=== PATIENT | male | born 1985 | race African-American/Black ===

== ENCOUNTER 2018-02-23 23:55 | Emergency (ER) | payer OTHER ==
[2018-02-24] MEDS ORDERED: LIDOCAINE 1%-EPI 1:100,000 30 ML VIAL SQ STA
[2018-02-24] MEDS ORDERED: BENZOCAINE SPRAY 1 CAN MUCOUS MEM STA (00:04)
[2018-02-24] MEDS ORDERED: DEXAMETHASONE SOD PHOSPHATE 10 MG/ML 1 ML VIAL IV STA (00:04)
[2018-02-24 00:06] VITALS: RESP 19
[2018-02-24] MEDS ORDERED: LORazepam 2 MG/ML INJ IV STA (00:24)
--- NOTE | 2018-02-24 01:29 | ED ---
General Adult HPI - General Chief complaint: ENT Stated complaint: Abscess Source: patient, EMS Mode of arrival: EMS Limitations: no limitations - History of Present Illness Initial comments: Dictation was produced using [email or web address] dictation software. please excuse any grammatical, word or spelling errors. Chief Complaint: 32yo Rican malesignificant past medical history presents via EMS as a transfer from [facility] for peritonsillar abscess. History of Present Illness: An is a 32-year-old -[place] male transferred [facility] peritonsillar abscess on the right. Evaluation was initially evaluated at [facility] where evaluation was performed. He did receive a CT angiogram of the neck showing 2 cm right peritonsillar abscess. Patient initially presented there with several days of worsening sore throat. Patient did have some symptoms as trismus as well. Patient received 900 mg of IV clindamycin prior to transfer. He did receive IV analgesics as well. The ROS documented in this emergency department record has been reviewed and confirmed by me. Those systems with pertinent positive or negative responses have been documented in the HPI. All other systems are other negative and/or noncontributory. - Related Data Home Medications Medication Instructions Recorded Confirmed HYDROcodone/APAP 10-325MG [[place] 1 each PO Q6H PRN 08/06/14 08/06/14 10] Previous Rx's Medication Instructions Recorded Ibuprofen [Motrin] 800 mg PO Q6HR PRN #30 tab 08/06/14 Clindamycin HCl 300 mg PO Q6H #40 cap 02/24/18 HYDROcodone/APAP 5-325MG [[place] 1 tab PO Q6HR PRN 3 Days #12 tab 02/24/18 5-325] Allergies Allergy/AdvReac Type Severity Reaction Status Date / Time No Known Allergies Allergy Verified 08/06/14 10:32 Review of Systems ROS Statement: Those systems with pertinent positive or pertinent negative responses have been documented in the HPI. ROS Other: All systems not noted in ROS Statement are negative. Past Medical History Past Medical History: No Reported History History of Any Multi-Drug Resistant Organisms: None Reported Past Surgical History: Orthopedic Surgery Additional Past Surgical History / Comment(s): right shoulder sx Past Psychological History: No Psychological Hx Reported Smoking Status: Current every day smoker Past Alcohol Use History: None Reported Past Drug Use History: Marijuana General Exam - General Exam Comments Initial Comments: PHYSICAL EXAM: General Impression: Alert and oriented x3, not in acute distress HEENT: Erythematous posterior pharynx with uvula deviation to the left and fullness to the right peritonsillar area Cardiovascular: Heart regular rate and rhythm, S1&S2 audible, no murmurs, rubs or gallops Chest: Lungs clear to auscultation bilaterally, no rhonchi, no wheeze, no rales Abdomen: Bowel sounds present, abdomen soft, non-tender, non-distended, no organomegaly Musculoskeletal: Pulses present and equal in all extremities, no peripheral edema Motor: Power 5/5 bilaterally, no focal deficits noted Neurological: CN II-XII grossly intact, no focal motor or sensory deficits noted Skin: Intact with no visualized rashes Psych: Normal affect and mood Limitations: no limitations Course Vital Signs 02/24/18 00:00 Temperature 97.2 F L Pulse Rate 67 Respiratory 19 Rate Blood Pressure 133/103 O2 Sat by Pulse 99 Oximetry Medical Decision Making - Medical Decision Making ED course: 32yo male presents to emergency Department with peritonsillar abscess. All signs upon arrival are within normal limits. She was slightly anxious prior to the procedure. Given 1 mg of Ativan. Patient was also given 10 mg of IV Decadron. Was reviewed from [facility]. Peritonsillar abscess drainage was performed. Patient tolerated procedure well. There was approximately 1-1/2 mL of purulent drainage. Discussed patient case with Dr. Gonzalez, ENT physician inclusion specialist recommends patient be discharged with by mouth antibiotics. Patient observed in emergency department for couple hours with stable medical condition. Patient be discharged and told to come back to the emergency department if symptoms acutely worsen. Patient otherwise given referral to primary care physician for follow-up. He does not have a PCP. Disposition Clinical Impression: Peritonsillar abscess Disposition: HOME SELF-CARE Instructions: Peritonsillar Abscess (ED) Prescriptions: Clindamycin HCl 300 mg PO Q6H #40 cap HYDROcodone/APAP 5-325MG [[place] 5-325] 1 tab PO Q6HR PRN 3 Days #12 tab PRN Reason: Severe Pain Is patient prescribed a controlled substance at d/c from ED?: Yes If prescribed controlled substance>3 days was MAPS reviewed?: Prescribed <3 Days Referrals: Laith King DO [Primary Care Provider] - 1-2 days Time of Disposition: 01:38
--- NOTE | 2018-02-24 01:40 | ED ---
Disposition Clinical Impression: Peritonsillar abscess Disposition: HOME SELF-CARE Instructions: Peritonsillar Abscess (ED) Prescriptions: Clindamycin HCl 300 mg PO Q6H #40 cap HYDROcodone/APAP 5-325MG [[place] 5-325] 1 tab PO Q6HR PRN 3 Days #12 tab PRN Reason: Severe Pain Is patient prescribed a controlled substance at d/c from ED?: Yes If prescribed controlled substance>3 days was MAPS reviewed?: Prescribed <3 Days Referrals: Laith King DO [Primary Care Provider] - 1-2 days Procedures - Incision & Drainage Consent Obtained: verbal consent Time Out Performed?: Yes Site: other Size (cm): 1 Anesthetic Used: lidocaine 1% Amount (mLs): 1 Needle Aspiration Performed?: Yes Irrigation Performed?: No I&D Drainage Obtained: Pus Culture Obtained?: No Patient Tolerated Procedure: well (Oropharynx. With Hurricaine spray, lidocaine with epinephrine was infiltrated into the right peritonsillar pillar. 18-gauge needle with 1 cm of needle exposed was used to aspirate purulent fluid from the right peritonsillar region. 1.5 mL of purulent fluid was removed. Patient tolerated procedure well)
[2018-02-24 02:02] VITALS: BP 124/85; PULSE 78; TEMP 97.9
== END 2018-02-24 01:39 | disposition home or self-care (01) ==
LOC: EC 23:55
DX: J36 Peritonsillar abscess (principal); F17.200 Nicotine dependence, unspecified, uncomplicated
CPT/HCPCS: 99283; 42700; 96374; 96375; J2060; J1100

== ENCOUNTER 2019-04-19 08:59 | Emergency (ER) | payer OTHER ==
[2019-04-19 09:14] VITALS: RESP 18; TEMP 99.4
--- NOTE | 2019-04-19 09:53 | ED ---
URI HPI - General Chief Complaint: Upper Respiratory Infection Stated Complaint: vomiting/dizziness Time Seen by Provider: 04/19/19 09:18 Source: patient Mode of arrival: ambulatory Limitations: no limitations - History of Present Illness Initial Comments: Patient is a 33-year-old male presenting to emergency Department with complaints of a fever, cough, body aches started yesterday. Patient states his girlfriend's kids have influenza and believes he may have it too. He did have history of mild asthma. He did have an one episode of vomiting this morning. He is not currently nauseous. He did take DayQuil this morning. He has no other complaints at this time. Upon arrival to ER, his vital signs are stable. - Related Data Home Medications Medication Instructions Recorded Confirmed HYDROcodone/APAP 10-325MG [[place] 1 each PO Q6H PRN 08/06/14 08/06/14 10] Previous Rx's Medication Instructions Recorded Ibuprofen [Motrin] 800 mg PO Q6HR PRN #30 tab 08/06/14 Clindamycin HCl 300 mg PO Q6H #40 cap 02/24/18 HYDROcodone/APAP 5-325MG [[place] 1 tab PO Q6HR PRN 3 Days #12 tab 02/24/18 5-325] Oseltamivir [Tamiflu] 75 mg PO Q12HR 5 Days #10 cap 04/19/19 Allergies Allergy/AdvReac Type Severity Reaction Status Date / Time No Known Allergies Allergy Verified 04/19/19 09:14 Review of Systems ROS Statement: Those systems with pertinent positive or pertinent negative responses have been documented in the HPI. ROS Other: All systems not noted in ROS Statement are negative. Past Medical History Past Medical History: No Reported History History of Any Multi-Drug Resistant Organisms: None Reported Past Surgical History: Orthopedic Surgery Additional Past Surgical History / Comment(s): right shoulder sx Past Psychological History: No Psychological Hx Reported Smoking Status: Current every day smoker Past Alcohol Use History: None Reported Past Drug Use History: Marijuana General Exam - General Exam Comments Initial Comments: GENERAL: Well-appearing, well-nourished and in no acute distress. HEAD: Atraumatic, normocephalic. EYES: Pupils equal round and reactive to light, extraocular movements intact, sclera anicteric, conjunctiva are normal. ENT: TMs normal, nares patent, oropharynx clear without exudates. Moist mucous membranes. NECK: Normal range of motion, supple without lymphadenopathy or JVD. LUNGS: Breath sounds clear to auscultation bilaterally and equal. No wheezes rales or rhonchi. HEART: Regular rate and rhythm without murmurs, rubs or gallops. ABDOMEN: Soft, nontender, normoactive bowel sounds. No guarding, no rebound. No masses appreciated. EXTREMITIES: Normal range of motion, no pitting or edema. No clubbing or cyanosis. NEUROLOGICAL: Normal speech, normal gait. PSYCH: Normal mood, normal affect. SKIN: Warm, Dry, normal turgor, no rashes or lesions noted. Limitations: no limitations Course Vital Signs 04/19/19 09:11 Temperature 99.4 F Pulse Rate 98 Respiratory 18 Rate Blood Pressure 122/82 O2 Sat by Pulse 99 Oximetry Medical Decision Making - Medical Decision Making Patient is a healthy 33-year-old male presenting with a cough and fever, body aches since yesterday. Vital signs stable here. Patient is influenza positive. History of his vitals have remained stable. Patient will be prescribed Tamiflu and he will continue with Tylenol or Motrin as needed for symptom control. He is stable for discharge at this time. Return parameters were discussed with the patient and he verbalized understanding. - Lab Data Lab Results 04/19/19 Range/Units 10:00 Influenza Type A RNA Not Detected (Not Detectd) Influenza Type B (PCR) Detected H (Not Detectd) Disposition Clinical Impression: Influenza Disposition: HOME SELF-CARE Condition: Stable Instructions (If sedation given, give patient instructions): Influenza (ED) Additional Instructions: Please return to the Emergency Department if symptoms worsen or any other concerns. Take Tylenol or Motrin as needed for fever and symptom control. Take Tamiflu as directed. Prescriptions: Oseltamivir [Tamiflu] 75 mg PO Q12HR 5 Days #10 cap Is patient prescribed a controlled substance at d/c from ED?: No Referrals: Laith King DO [Primary Care Provider] - 1-2 days
[2019-04-19 11:04] VITALS: BP 120/85; PULSE 96
== END 2019-04-19 11:06 | disposition home or self-care (01) ==
LOC: EC 08:59
DX: J11.1 Influenza due to unidentified influenza virus with other respiratory manifestations (principal); F17.200 Nicotine dependence, unspecified, uncomplicated
CPT/HCPCS: 87502; 99283

== ENCOUNTER 2021-01-25 13:38 | Emergency (ER) | payer OTHER ==
[2021-01-25 14:04] VITALS: BP 132/83; PULSE 89; RESP 18; TEMP 97.8
[2021-01-25] MEDS ORDERED: GELATIN SPONGE,ABSORB (SMALL) 1 EACH SPONGE TOPICAL STA (15:04)
[2021-01-25] MEDS ORDERED: HYDROcodone/APAP 5-325MG 1 EACH TAB PO STA (15:04)
--- NOTE | 2021-01-25 15:50 | ED ---
Wound/Laceration HPI - General Chief Complaint: Wound/Laceration Stated Complaint: L hand Lac Time Seen by Provider: 01/25/21 15:00 Source: patient, RN notes reviewed Mode of arrival: ambulatory Limitations: no limitations - History of Present Illness Initial Comments: Patient is a 35-year-old male presenting to the emergency Department with complaints of a laceration to his left thumb. Patient states he was cutting up onions when he accidentally cut the tip of his left thumb. There is some mild active bleeding, is controlled with pressure and a bandage. He is up-to-date with his tetanus vaccine. He is not on blood thinners. There are no further complaints. - Related Data Home Medications Medication Instructions Recorded Confirmed HYDROcodone/APAP 10-325MG [[place] 1 each PO Q6H PRN 08/06/14 08/06/14 10] Previous Rx's Medication Instructions Recorded Ibuprofen [Motrin] 800 mg PO Q6HR PRN #30 tab 08/06/14 Clindamycin HCl 300 mg PO Q6H #40 cap 02/24/18 HYDROcodone/APAP 5-325MG [[place] 1 tab PO Q6HR PRN 3 Days #12 tab 02/24/18 5-325] Oseltamivir [Tamiflu] 75 mg PO Q12HR 5 Days #10 cap 04/19/19 Allergies Allergy/AdvReac Type Severity Reaction Status Date / Time No Known Allergies Allergy Verified 01/25/21 14:04 Review of Systems ROS Statement: Those systems with pertinent positive or pertinent negative responses have been documented in the HPI. ROS Other: All systems not noted in ROS Statement are negative. Past Medical History Past Medical History: No Reported History History of Any Multi-Drug Resistant Organisms: None Reported Past Surgical History: Orthopedic Surgery Additional Past Surgical History / Comment(s): right shoulder sx Past Psychological History: No Psychological Hx Reported Smoking Status: Current every day smoker Past Alcohol Use History: None Reported Past Drug Use History: Marijuana General Exam - General Exam Comments Initial Comments: GENERAL: Patient is well-developed and well-nourished. Patient is nontoxic and in mild distress. HEAD: Atraumatic, normocephalic. EYES: Pupils equal round and reactive to light, extraocular movements intact, sclera anicteric, conjunctiva are normal. Eyelids were unremarkable. LUNGS: Unlabored respirations. Breath sounds clear to auscultation bilaterally and equal. No wheezes rales or rhonchi. HEART: Regular rate and rhythm without murmurs, rubs or gallops. MUSCULOSKELETAL: Normal extremities with adequate strength and normal range of motion, no pitting or edema. No clubbing or cyanosis. SKIN: Warm, Dry, normal turgor, no rashes. Patient has a small 0.5 cm area of the distal left thumb that is avulsed off, only a small amount of tissue is missing. There is some mild active bleeding, controlled with a bandage. No nail involvement, he is neurovascular intact. Limitations: no limitations Course Vital Signs 01/25/21 01/25/21 01/25/21 14:00 15:04 16:10 Temperature 97.8 F 97.8 F Pulse Rate 89 89 Respiratory 18 18 18 Rate Blood Pressure 132/83 132/83 O2 Sat by Pulse 98 98 Oximetry Medical Decision Making - Medical Decision Making Patient is a 35-year-old male here with a very small 0.5 cm avulsion of the tissue at the distal end of the left thumb after he was cutting up onions. He is up-to-date with his tetanus. Patient's wound was cleaned, covered with Gelfoam and bandaged. He was given pain medication as he was in severe amount of pain. He is stable for discharge. We discussed wound care. Disposition Clinical Impression: Laceration of left thumb Disposition: HOME SELF-CARE Condition: Stable Instructions (If sedation given, give patient instructions): Acute Wound Care (ED) Additional Instructions: Please return to the Emergency Department if symptoms worsen or any other concerns. Keep wound clean and dry, change bandage daily. Follow-up with your primary care. Is patient prescribed a controlled substance at d/c from ED?: No Referrals: Laith King DO [Primary Care Provider] - 1-2 days Time of Disposition: 15:50
== END 2021-01-25 16:12 | disposition home or self-care (01) ==
LOC: EC 13:38
DX: S61.012A Laceration without foreign body of left thumb without damage to nail, initial encounter (principal); F17.200 Nicotine dependence, unspecified, uncomplicated; W26.9XXA Contact with unspecified sharp object(s), initial encounter; Y93.89 Activity, other specified
CPT/HCPCS: 99282

== ENCOUNTER 2021-01-30 08:38 | Emergency (ER) | payer OTHER ==
[2021-01-30 09:00] VITALS: BP 136/95; PULSE 93; RESP 18; TEMP 97.9
--- NOTE | 2021-01-30 12:01 | XR ---
EXAMINATION TYPE: XR chest 2V DATE OF EXAM: 01/30/2021 COMPARISON: 12/23/2012 HISTORY: 35-year-old male URI, cough TECHNIQUE: PA and lateral views FINDINGS: The cardiomediastinal silhouette, aorta, and pulmonary vasculature are within normal limits. Some haz y lower lung density relates to overlying soft tissue. Otherwise, lungs and pleural spaces are clear. IMPRESSION: No acute cardiopulmonary process.
--- NOTE | 2021-01-30 13:35 | ED ---
URI HPI - General Chief Complaint: Upper Respiratory Infection Stated Complaint: revisit - thumb issue, cough Time Seen by Provider: 01/30/21 10:58 Source: patient, RN notes reviewed Mode of arrival: ambulatory Limitations: no limitations - History of Present Illness Initial Comments: 35-year-old male presents emergency department complaining of upper story symptoms such as cough and nasal condition. Patient also notes that he has Gelfoam to his thumb that is not come off since the fourth. Patient was otherwise well-appearing. He denied any other issues or complaints. He denied any use aspirating or alleviating factors. He denied chest pain shortness breath headache nausea vomiting diarrhea constipation fever fatigue chills. - Related Data Home Medications Medication Instructions Recorded Confirmed HYDROcodone/APAP 10-325MG [[place] 1 each PO Q6H PRN 08/06/14 08/06/14 10] Previous Rx's Medication Instructions Recorded Ibuprofen [Motrin] 800 mg PO Q6HR PRN #30 tab 08/06/14 Clindamycin HCl 300 mg PO Q6H #40 cap 02/24/18 HYDROcodone/APAP 5-325MG [[place] 1 tab PO Q6HR PRN 3 Days #12 tab 02/24/18 5-325] Oseltamivir [Tamiflu] 75 mg PO Q12HR 5 Days #10 cap 04/19/19 Allergies Allergy/AdvReac Type Severity Reaction Status Date / Time No Known Allergies Allergy Verified 01/30/21 09:00 Review of Systems ROS Statement: Those systems with pertinent positive or pertinent negative responses have been documented in the HPI. ROS Other: All systems not noted in ROS Statement are negative. Past Medical History Past Medical History: No Reported History History of Any Multi-Drug Resistant Organisms: None Reported Past Surgical History: Orthopedic Surgery Additional Past Surgical History / Comment(s): right shoulder sx Past Psychological History: No Psychological Hx Reported Smoking Status: Current every day smoker Past Alcohol Use History: None Reported Past Drug Use History: Marijuana General Exam Limitations: no limitations General appearance: alert, in no apparent distress Head exam: Present: atraumatic, normocephalic, normal inspection Eye exam: Present: normal appearance, PERRL, EOMI. Absent: scleral icterus, conjunctival injection, periorbital swelling ENT exam: Present: normal exam, mucous membranes moist Neck exam: Present: normal inspection Respiratory exam: Present: normal lung sounds bilaterally. Absent: respiratory distress, wheezes, rales, rhonchi, stridor Cardiovascular Exam: Present: regular rate, normal rhythm, normal heart sounds. Absent: systolic murmur, diastolic murmur, rubs, gallop, clicks GI/Abdominal exam: Present: soft, normal bowel sounds. Absent: distended, tenderness, guarding, rebound, rigid Extremities exam: Present: normal inspection, full ROM, normal capillary refill. Absent: tenderness, pedal edema, joint swelling, calf tenderness Neurological exam: Present: alert, oriented X3 Psychiatric exam: Present: normal affect, normal mood Skin exam: Present: warm, dry, intact, normal color. Absent: rash Course Vital Signs 01/30/21 08:57 Temperature 97.9 F Pulse Rate 93 Respiratory 18 Rate Blood Pressure 136/95 O2 Sat by Pulse 99 Oximetry Medical Decision Making - Medical Decision Making 35-year-old male complaining of upper respiratory tract symptoms. Covid test, chest or ordered. Covid test negative. Chest x-ray no acute card up on her process. Hand was soaked in water Gelfoam is removed. Case discussed with Dr. Zaman, patient discharge home. - Lab Data Lab Results 01/30/21 Range/Units 11:28 Coronavirus (PCR) Not Detected (Not Detectd) - Radiology Data Radiology results: report reviewed, image reviewed Chest x-ray: No acute cardiopulmonary process. Disposition Clinical Impression: Acute upper respiratory infection Disposition: HOME SELF-CARE Condition: Stable Instructions (If sedation given, give patient instructions): Upper Respiratory Infection (ED) Additional Instructions: Please return to the Emergency Department if symptoms worsen or any other concerns. Follow-up with primary care 1-2 days. Continue conservative management home with Tylenol Motrin for fevers. Can use [id number] nasal decongestants. Is patient prescribed a controlled substance at d/c from ED?: No Referrals: Laith King DO [Primary Care Provider] - 1-2 days Time of Disposition: 13:34
== END 2021-01-30 13:59 | disposition home or self-care (01) ==
LOC: EC 08:38
DX: J06.9 Acute upper respiratory infection, unspecified (principal); F17.200 Nicotine dependence, unspecified, uncomplicated; Z20.822 Contact with and (suspected) exposure to COVID-19
CPT/HCPCS: 71046; 87635; 99283

== ENCOUNTER 2021-03-21 09:15 | Emergency (ER) | payer OTHER ==
[2021-03-21] MEDS ORDERED: SODIUM CHLORIDE 0.9% 2,000 ML IV STA (09:50)
[2021-03-21] MEDS ORDERED: KETOROLAC 15 MG/ML 1 ML VIAL IVP STA (09:55)
[2021-03-21 10:23] LABS: Basophils % (A) 0 %; Eosinophils # (A) 0.1 k/uL (0-0.7); Eosinophils % (A) 1 %; HCT 52.3 % (39.0-53.0); HGB 16.6 gm/dL (13.0-17.5); Lymphocytes # (A) 0.4 k/uL (1.0-4.8); Lymphocytes % (A) 4 %; MCH 29.7 pg (25.0-35.0); MCHC 31.8 g/dL (31.0-37.0); MCV 93.2 fL (80.0-100.0); Mean Platelet Volume 9.8; Monocytes # (A) 0.5 k/uL (0-1.0); Monocytes % (A) 4 %; Neutrophils # (A) 9.9 k/uL (1.3-7.7); Neutrophils % (A) 91 %; Platelet Count 240 k/uL (150-450); RBC 5.61 m/uL (4.30-5.90); RDW 12.3 % (11.5-15.5)
--- NOTE | 2021-03-21 10:24 | XR ---
EXAMINATION TYPE: XR chest 2V DATE OF EXAM: 03/21/2021 COMPARISON: 01/30/2021 TECHNIQUE: PA and lateral views submitted. HISTORY: Pain FINDINGS: The lungs are clear and there is no pneumothorax, pleural effusion, or focal pneumonia. Heart size normal. Postsurgical change right humeral head. No overt failure. Limited inspiration. IMPRESSION: 1. No acute process.
[2021-03-21] MEDS ORDERED: ONDANSETRON 4 MG ODT STARTER PACK 2 TAB BTL PO STA (10:52)
--- NOTE | 2021-03-21 10:56 | ED ---
General Adult HPI - General Chief complaint: Nausea/Vomiting/Diarrhea Stated complaint: nausea, vomiting Time Seen by Provider: 03/21/21 09:20 Source: patient, EMS Mode of arrival: EMS Limitations: no limitations - History of Present Illness Initial comments: 85 year old previously healthy male presents emergency department with nausea and vomiting which started around 2 AM this morning. States he got up to go to the bathroom and didn't feel well. He was so dizzy and felt like he was Passed out that he laid on the bathroom floor with a pillow. Had 2 episodes of emesis. Denies hematemesis. Denies any abdominal pain or diarrhea. He couldn't get up off the floor and therefore called EMS. He is found to have a fever by EMS. IV was established is given 4 mg of Zofran and 500 mL of saline. He admits that his roommate tested positive for Covid. He is not vaccinated. Also is concerned that he may have eaten some tainted foods as he did eat out at restaurants over the past 2 days. No cough or shortness of breath. Does have a history of asthma. No other alleviating, precipitating or modifying factors - Related Data Home Medications Medication Instructions Recorded Confirmed oxyCODONE-APAP 7.5-325MG [Percocet 1 tab PO TID 03/21/21 03/21/21 7.5-325 mg] Previous Rx's Medication Instructions Recorded Albuterol Inhaler [Ventolin Hfa 2 puff INHALATION RT-QID #8 gm 03/21/21 Inhaler] Ondansetron Odt [Zofran Odt] 4 mg PO Q8HR PRN #10 tab 03/21/21 Allergies Allergy/AdvReac Type Severity Reaction Status Date / Time No Known Allergies Allergy Verified 03/21/21 10:50 Review of Systems ROS Statement: Those systems with pertinent positive or pertinent negative responses have been documented in the HPI. ROS Other: All systems not noted in ROS Statement are negative. Past Medical History Past Medical History: No Reported History History of Any Multi-Drug Resistant Organisms: None Reported Past Surgical History: Orthopedic Surgery Additional Past Surgical History / Comment(s): right shoulder sx Past Psychological History: No Psychological Hx Reported Smoking Status: Current every day smoker Past Alcohol Use History: None Reported Past Drug Use History: Marijuana General Exam Limitations: no limitations General appearance: alert, in no apparent distress Head exam: Present: atraumatic, normocephalic, normal inspection Eye exam: Present: normal appearance, PERRL, EOMI. Absent: scleral icterus, conjunctival injection, periorbital swelling ENT exam: Present: normal exam, mucous membranes moist Neck exam: Present: normal inspection. Absent: tenderness, meningismus, lymphadenopathy Respiratory exam: Present: normal lung sounds bilaterally. Absent: respiratory distress, wheezes, rales, rhonchi, stridor Cardiovascular Exam: Present: normal rhythm, tachycardia, normal heart sounds. Absent: systolic murmur, diastolic murmur, rubs, gallop, clicks GI/Abdominal exam: Present: soft, normal bowel sounds. Absent: distended, tenderness, guarding, rebound, rigid Extremities exam: Present: normal inspection, full ROM, normal capillary refill. Absent: tenderness, pedal edema, joint swelling, calf tenderness Back exam: Present: normal inspection Neurological exam: Present: alert, oriented X3, CN II-XII intact Psychiatric exam: Present: normal affect, normal mood Skin exam: Present: warm, dry, intact, normal color. Absent: rash Course Vital Signs 03/21/21 03/21/21 09:17 11:19 Temperature 99.9 F H 100.4 F H Pulse Rate 106 H 104 H Respiratory 16 18 Rate Blood Pressure 162/85 135/77 O2 Sat by Pulse 100 98 Oximetry Medical Decision Making - Medical Decision Making Upon arrival patient was placed into room 4. History and physical exam is performed. IV is established laboratory studies are conducted. Chest x-rays performed. He was given 2 L of normal saline. Reports to marked improvement in his nausea after the Zofran administration. Patient was swabbed for Covid and it is positive. Chest x-ray demonstrates no acute process. He does not demonstrate any increased work of breathing and oxygen saturations are 98%. Patient will be discharged home with a prescription for Zofran. Also requesting that I refill his albuterol inhaler. He is instructed to buy pulse ox and return for any worsening oxygenation or new symptoms. Patient agreed to this was and discharged home in stable condition - Lab Data Result diagrams: 03/21/21 10:08 Lab Results 03/21/21 03/21/21 Range/Units 10:08 10:08 WBC 11.0 H (3.8-10.6) k/uL RBC 5.61 (4.30-5.90) m/uL Hgb 16.6 (13.0-17.5) gm/dL Hct 52.3 (39.0-53.0) % MCV 93.2 (80.0-100.0) fL MCH 29.7 (25.0-35.0) pg MCHC 31.8 (31.0-37.0) g/dL RDW 12.3 (11.5-15.5) % Plt Count 240 (150-450) k/uL MPV 9.8 Neutrophils % 91 % Lymphocytes % 4 % Monocytes % 4 % Eosinophils % 1 % Basophils % 0 % Neutrophils # 9.9 H (1.3-7.7) k/uL Lymphocytes # 0.4 L (1.0-4.8) k/uL Monocytes # 0.5 (0-1.0) k/uL Eosinophils # 0.1 (0-0.7) k/uL Basophils # 0.0 (0-0.2) k/uL Coronavirus (PCR) Detected A (Not Detectd) Disposition Clinical Impression: Nausea & vomiting, COVID-19 Disposition: HOME SELF-CARE Condition: Stable Instructions (If sedation given, give patient instructions): Coronavirus Dis ease 2019 (COVID-19) Additional Instructions: Please follow-up with your primary care doctor. Take Zofran as needed for nausea. Return for any new or worsening symptoms Prescriptions: Albuterol Inhaler [Ventolin Hfa Inhaler] 2 puff INHALATION RT-QID #8 gm Ondansetron Odt [Zofran Odt] 4 mg PO Q8HR PRN #10 tab PRN Reason: Nausea Is patient prescribed a controlled substance at d/c from ED?: No Referrals: Laith King DO [Primary Care Provider] - 1-2 days Time of Disposition: 10:55
[2021-03-21 11:20] VITALS: BP 135/77; PULSE 104; RESP 18; TEMP 100.4
== END 2021-03-21 11:20 | disposition home or self-care (01) ==
LOC: EC 09:15
DX: U07.1 COVID-19 (principal); F17.200 Nicotine dependence, unspecified, uncomplicated
CPT/HCPCS: 36415; 85025; 87635; 71046; 99284; 96374; 96361; J1885; S0119